=== PATIENT | female | born 1940 | race Caucasian/White ===

== ENCOUNTER 2022-01-07 11:54 | Emergency (ER) | payer MEDICARE, BC ==
[2022-01-07 12:56] LABS: HEMOGLOBIN 12.7 gm/dl (12.3-15.3); RED BLOOD COUNT 4.28 M/UL (4.00-5.10)
[2022-01-07] MEDS ORDERED: BREO ELLIPTA 21 EACH INH (14:24)
[2022-01-07] MEDS ORDERED: LASIX20 MG PO (14:24)
[2022-01-07] MEDS ORDERED: PROAIR HFA8.5 GM INH (16:26)
== END 2022-01-07 14:10 | disposition home or self-care (01) ==
LOC: ER1 11:54
PROVIDERS: Emergency Medicine
DX: J90 Pleural effusion, not elsewhere classified (principal); J44.9 Chronic obstructive pulmonary disease, unspecified; Z20.822 Contact with and (suspected) exposure to COVID-19
CPT/HCPCS: 71045; 80048; 83880; 84484; 85025; 85610; 86140; 93005; 94664; 94760; 99285; U0002